=== PATIENT | female | born 1980 | race Caucasian/White ===

== ENCOUNTER 2024-11-25 19:50 | Emergency (ER) | payer MEDICARE, SELFPAY ==
--- OUTSIDE RECORDS SUMMARY | 2024-11-25 19:54 | XMS_ITS | Clinical Summary ---
Author Organization [facility] Address [address] [address] Care Team Providers Care Toe Former Stitchdowns Name Role Phone Unavailable Primary Care Provider Unavailabl e Source Comments [facility],non-owned Affiliates and Associated Physician Practices is amultiple site organization consisting of ambulatory clinics and hospital sitesin [place], [place], [place] and [place]. This disclosure is being madepursuant to the Care Everywhere program and may not contain all information available regarding this patient. Last updated 18.[facility] Allergies Active Allergy Reactions Criticality Noted Date Comments Codeine Swelling 04/20/2020 Medications * This document contains information received from the source organization and may not represent a complete record from that organization. * Be aware that medications may not be up to date on this document. Alwaysverify current medications with the patient. FLUoxetine (PROZAC) 40 MG capsuleIndicati ons:Major Depressive Disorder Take 1 capsule by mouth daily with breakfast 0 Active busPIRone (BUSPAR) 10 MG tabletIndicatio ns:Anxiety Take 1 tablet by mouth 2 times daily Reasons: Feeling Anxious 14 tablet 2 0 Active mirtazapine (REMERON) 15 MG tabletIndicatio ns:Major Depressive Disorder Take 1 tablet by mouth at bedtime Reasons: Major Depressive Disorder 7 tablet 2 0 Active Active Problems Problem Noted Date Diagnosed Date Drug overdose, intentional self-harm, initial en counter 04/20/2020 Bipolar affective disorder, depressed, severe Overdose of antipsychotic 04/20/2020 Immunizations Immunization Administration Dates Next Due INFLUENZA VACCINE, QUADR. (F LUZONE; FLULAVAL; FLUARIX; AFLURIA QUADRIVALENT; 6MO+), 0.5 ML (IIV4) 04/25/2020 Social History Tobacco Use Types Packs/Day Years Used Date Smoking Tobacco: Some Days Cigarettes Smokeless Tobacco: Never Tobacco Cessation:Ready to Q uit: No; Counseling Given: Yes Comments No Sex and Gender Information Value Date Recorded Sex Assigned at Not on file Legal Sex Female 4:17 PM CDT Gender Identity Not on file Sexual Orientation Not on file Last Filed Vital Signs Vital Sign Reading Time Taken Comments Blood Pressure 119/72 05/04/2020 6:04 AM CDT Pulse 78 05/04/2020 6:04 AM CDT Temperature 36.4 C (97.5 F) 05/04/2020 6:04 AM CDT Respiratory Rate 16 05/04/2020 6:04 AM CDT Oxygen Saturation 97% 05/04/2020 6:04 AM CDT Inhaled Oxygen Concentration 30% 04/22/2020 7 :26 PM CDT Weight 75.3 kg (166 lb) 05/01/2020 9:12 PM CDT Height 157.5 cm (5' 2 ) 05/01/2020 9:12 PM CDT Body Mass Index 30.36 05/01/2020 9:12 PM CDT Plan of Treatment Health Maintenance Due Date Last Done Comments LIPID TESTING 1982 MAMMOGRAM 1982 HIV SCREENING 1997 HEPATITIS C SCREENING 09/25/2000 DTAP/TDAP/TD VACCINES (1 - Tdap) 2001 HEPATITIS B VACCINE (1 of 3 - 19+ 3-dose series) 2001 PNEUMOCOCCAL VACCINE (1 of 2 - PCV) 2001 COVID-19 VACCINE ( - 2023-2 5 season) 2024 INFLUENZA VACCINE (Season Ended) 2025 04/25/20 20 ZOSTER VACCINE (1 of 2) 2032 HIB VACCINE Aged Out No longer eligi ble based on patient's age to complete this topic HPV VACCINE Aged Out No longer eligi ble based on patient's age to complete this topic MENINGOCOCCAL (Group B) VACC INE SHARED DECISION-MAKING Aged Out No longer eligibl e based on patient's age to complete this topic MENINGOCOCCAL GROUPS A/C/Y/W VACCINE Aged Out No longer eligible b ased on patient's age to complete this topic Insurance MEDICARE MEDICARE MEDICARE MEDICAID - [place] MEDICARE Advance Directives * Full Code (Latest Code Status on File) Date Activated Date Inactivated Comments 04/25/2020 3:33 PM 05/04/2020 11:57 AM * Full Code Date Activated Date Inactivated Comments 04/20/2020 9:57 AM 04/25/2020 3:23 PM
--- OUTSIDE RECORDS SUMMARY | 2024-11-25 19:54 | XMS_ITS | Clinical Summary ---
Author Organization [facility] Address [address] [place] [address] Care Team Providers Care Motor And Generator Assembler Name Role Phone No, Physician Primary Care Provider [phone] Allergies Active Allergy Reactions Criticality Noted Date Comments Codeine Swelling Medium 01/04/2023 Acetaminophen Swelling Medium 05/19/2024 Medications naproxen (NAPROSYN) 500 mg tablet Take 1 tablet (500 mg total) by mouth 2 (two) times a day with meals 30 tablet 05/19/2024 Active lidocaine (LIDODERM) 5 % Place 1 patch on the skin daily for 7 days Remove & discard patch within 12 hours or as directed by MD. 7 patch 05/19/2024 Active cyclobenzaprine (FLEXERIL) 10 mg tablet Take 1 tablet (10 mg total) by mouth 2 (two) times a day as needed for muscle spasms for up to 3 days 6 tablet 05/19/2024 Active Immunizations Immunization Administration Dates Next Due Tdap 05/19/2024 Social History Tobacco Use Types Packs/Day Years Used Date Smoking Tobacco: Never Assessed Personal Safety Answer Date Recorded Have you ever been in or are you currently in a harmful physical or emotional relationship or is someone making you feel afraid or unsafe? 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 Gender Identity Not on file Sexual Orientation Not on file Last Filed Vital Signs Vital Sign Reading Time Taken Comments Blood Pressure 116/68 05/19/2024 11:00 PM CDT Pulse 73 05/19/2024 11:00 PM CDT Temperature 36.4 C (97.5 F) 05/19/2024 8:06 PM CDT Respiratory Rate 18 05/19/2024 10:31 PM CDT Oxygen Saturation 100% 05/19/2024 11:00 PM CDT Inhaled Oxygen Concentration - - Weight 72.3 kg (159 lb 6.3 oz) 05/19/2024 8:06 P M CDT Height 157.5 cm (5' 2 ) 01/04/2023 5:11 PM CDT Body Mass Index 29.15 01/04/2023 5:11 PM CDT Plan of Treatment Health Maintenance Due Date Last Done Comments Breast Cancer Screening-Mammogram 1982 Cervical Cancer Screening 1982 Depression Screening 1982 Hepatitis C Screening 1982 Varicella Vaccines (1 of 2 - 13+ 2-dose series) 10/01/1995 Hepatitis B Screening 2000 Regular Well Visit/Exam 18-64 2000 Influenza Vaccine (Season Ended) 2025 04/25/2020, 06/24/2013 DTaP/Tdap/Td Vaccine (2 - Td or Tdap) 05/19/2034 05/19/2024 HPV Vaccines Aged Out No longer eligi ble based on patient's age to complete this topic Pneumococcal vaccine <65 Aged Out No longer eligible based on patient's age to complete this topic Insurance MEDICARE MEDICARE MEDICARE [employer] CHOICE MEDICARE PPO [id number] Care Teams Motor And Generator Assembler Relationship Specialty Start Date End Date No, Physician PCP - General 05/21/19
--- OUTSIDE RECORDS SUMMARY | 2024-11-25 19:54 | XMS_ITS | Referral Summary ---
Author Organization [facility] Address [address] [place] [address] Care Team Providers Care First Front Ventilator Name Role Phone No, Physician Primary Care Provider [phone] Allergies Active Allergy Reactions Criticality Noted Date [...] on file Legal Sex Female 10:56 AM SWITCH MAKER Gender Identity Not on file Sexual Orientation [...] 01/04/2023 5:11 PM CDT Plan of Treatment Not on file Insurance MEDICARE ([address] [id number] MEDICARE MEDICARE [employer] CHOICE MEDICARE PPO [facility] Care Teams First Front Ventilator Relationship Specialty Start Date End Date No, Physician PCP - General 05/21/19
[2024-11-25 19:55] VITALS: BP 111/94; PULSE 92; RESP 20; TEMP 37.1; O2SAT 97
--- OUTSIDE RECORDS SUMMARY | 2024-11-25 22:52 | XMS_ITS | Clinical Summary ---
Author Organization [facility] Address [address] [place] [id number] Care Team Providers Care Principal Data Architect Name Role Phone None, Provider Primary Care Provider Unavaila ble Allergies Active Allergy Reactions Criticality Noted Date Comments Acetaminophen Swelling 09/26/2024 Medications No known medications Encounters Date Type Department Care Team Description 09/26/2024 7:19 PM CDT - 09/26/2024 8:19 PM CDT Emergency [facility] [address] [place] [address] Chris Lopez MD Psychiatric Problem Discharge Disposition: Home or Self Care (Routine Discharge) 09/26/2024 Travel from Last 3 Months Social History Tobacco Use Types Packs/Day Years Used Date Smoking Tobacco: Never Assessed Comments Unknown Sex and Gender Information Value Date Recorded Sex Assigned at Female 09/26/2024 7:30 PM CDT Legal Sex Female 4:32 PM CDT Gender Identity Female 09/26/2024 7:30 PM CDT Sexual Orientation Not on file Last Filed Vital Signs Vital Sign Reading Time Taken Comments Blood Pressure 116/70 09/26/2024 8:11 PM CDT Pulse 63 09/26/2024 8:11 PM CDT Temperature 36.2 C (97.2 F) 09/26/2024 7:26 PM CDT Respiratory Rate 20 09/26/2024 8:11 PM CDT Oxygen Saturation 98% 09/26/2024 8:11 PM CDT Inhaled Oxygen Concentration - - Weight 68.9 kg (152 lb) 09/26/2024 7:26 PM CDT Height 157.5 cm (5' 2 ) 09/26/2024 7:26 PM CDT Body Mass Index 27.8 09/26/2024 7:26 PM CDT Plan of Treatment Health Maintenance Due Date Last Done Comments Cervical Cancer Screening Pa p Smear (Age 30 to 64) Every 3 Years 1982 Annual Physical 1985 Hepatitis C 2000 Hepatitis B Vaccines (1 of 3 - 19+ 3-dose series) 2001 Cervical Cancer Screening Pa p with HPV Testing (Age 30 to 64) Every 5 Years 2012 Cervical Cancer Screening with HPV 2012 Mammogram Screening 2022 COVID-19 Vaccine (1 - 2023-2 5 season) 2024 DTaP, Tdap and Td Vaccines ( 2 - Td or Tdap) 05/19/2034 05/19/2024 HPV Vaccines Aged Out No longer eligi ble based on patient's age to complete this topic Meningococcal B Vaccine Aged Out No l onger eligible based on patient's age to complete this topic Meningococcal Vaccine Aged Out No olaf starr eligible based on patient's age to complete this topic Pneumococcal Vaccine: Pediat rics (0 to 5 Years) and At-Risk Patients (6 to 49 Years) Aged Out No longer eligi ble based on patient's age to complete this topic RSV Immunizations Under 20 Months Aged Out No longer eligible based on patient's age to complete this topic Insurance Care Teams Principal Data Architect Relationship Specialty Start Date End Date None, Provider, MD PCP - General UNKNOWN PHYSICIAN SPECIALTY 09/26/24
--- OUTSIDE RECORDS SUMMARY | 2024-11-25 22:52 | XMS_ITS | Clinical Summary ---
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 Care Teams Condenser Tester Relationship Specialty Start Date End Date No, Physician PCP - General 05/21/19
--- OUTSIDE RECORDS SUMMARY | 2024-11-25 22:52 | XMS_ITS | Clinical Summary ---
Author Organization [facility] Address [address] [place] [address] Care Team Providers Care Nuclear Physicist Name Role Phone Unavailable Primary Care Provider Unavailabl e Source Comments [facility],non-owned Affiliates and Associated Physician Practices is amultiple site organization consisting of ambulatory clinics and hospital sitesin [place], [place], [place] and [place]. This disclosure is being madepursuant to the Care Everywhere program and may not contain all information available regarding this patient. Last updated 18.[facility] Allergies Active Allergy Reactions Criticality Noted Date [...]
--- OUTSIDE RECORDS SUMMARY | 2024-11-25 22:52 | XMS_ITS | Referral Summary ---
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
--- NOTE | 2024-11-25 23:21 | ED.GENADULT ---
HPI - General Adult General Chief complaint: Unspecified Stated complaint: lice, crabs, and bedbugs Time Seen by Provider: 11/25/24 22:11 Source: patient Mode of arrival: ambulatory Limitations: no limitations History of Present Illness HPI narrative: 44-year-old here with a complains of having head lice, bedbugs, body lice for past 2 months she thinks they are crawling all over her body and into her mouth. She states that she has seen several providers and they did not believe. She states that she lives with a person OS [address] head she thinks she has fleas all over the body Onset (ago): month(s) Associated symptoms: denies other symptoms Related Data Allergies Allergy/AdvReac Type Severity Reaction Status Date / Time codeine Allergy Mild Unknown Verified 11/25/24 19:52 acetaminophen Allergy Unknown GENERALIZED Verified 11/25/24 19:52 EDEMA Review of Systems Review of Systems: All systems reviewed & are unremarkable except as noted in HPI and below Constitutional: Constitutional: Reports no additional constitutional complaints Eyes: Eyes: Reports no additional eye complaints ENT: Reports system reviewed and no additional complaints, except as documented Cardiovascular: Cardiovascular: Reports no additional cardiovascular complaints Respiratory: Respiratory: Reports no additional respiratory complaints Gastrointestinal: Gastrointestinal: Reports no additional gastrointestinal complaints Musculoskeletal: Musculoskeletal: Reports no additional musculoskeletal complaints Exam Narrative: GENERAL: Well-appearing, well-nourished, and in no acute distress. HEAD: Normocephalic, atraumatic. EYES: PERRLA and EOMI. ENT: Nares clear, no rhinorrhea or epistaxis. Mucous membranes moist. NECK: Supple. CHEST: Clear to auscultation. No respiratory distress. HEART: Regular rate and rhythm. No murmur heard. Normal peripheral pulses. ABDOMEN: Soft, nontender, nondistended, normal active bowel sounds. EXTREMITIES: Normal range of motion. No edema. SKIN: Warm, dry, no rash. NEURO: No focal deficits. Alert and oriented x3. PSYCH: Normal mood and affect. Course Course Emergency Course: I did not see any lice or bugs on the body thoroughly examined the hair , i told her could be her imagination Vital Signs Vital signs: Vital Signs Temperature 37.1 C 11/25/24 19:55 Pulse Rate 92 11/25/24 19:55 Respiratory Rate 20 11/25/24 19:55 Blood Pressure 111/94 H 11/25/24 19:55 Pulse Oximetry 97 11/25/24 19:55 Oxygen Delivery Room Air 11/25/24 19:55 Temperature 37.1 C 11/25/24 19:55 Pulse Rate 92 11/25/24 19:55 Respiratory Rate 20 11/25/24 19:55 Blood Pressure 111/94 H 11/25/24 19:55 Pulse Oximetry 97 11/25/24 19:55 Oxygen Delivery Room Air 11/25/24 19:55 Medical Decision Making Vital Signs Vital Signs: Vital Signs Temperature 37.1 C 11/25/24 19:55 Pulse Rate 92 11/25/24 19:55 Respiratory Rate 20 11/25/24 19:55 Blood Pressure 111/94 H 11/25/24 19:55 Pulse Oximetry 97 11/25/24 19:55 Oxygen Delivery Room Air 11/25/24 19:55 Temperature 37.1 C 11/25/24 19:55 Pulse Rate 92 11/25/24 19:55 Respiratory Rate 20 11/25/24 19:55 Blood Pressure 111/94 H 11/25/24 19:55 Pulse Oximetry 97 11/25/24 19:55 Oxygen Delivery Room Air 11/25/24 19:55 Discharge Plan Discharge Clinical Impression: Psychogenic formication Patient Disposition: Home Condition: Stable Instructions: Antibiotic Form Additional Instructions: You do not have any head lice , follow with your doctor Patient Language: Turkish Follow-up/Referrals: Ralph Heath DO [Physician] - PHYSICIAN,COMMUNICATIONS ELECTRICIAN SUPERVISOR [Primary Care Provider] - Time of Disposition: 23:23
[2024-11-25 23:51] VITALS: BP 116/89; PULSE 81; RESP 15; O2SAT 98
== END 2024-11-25 23:52 | disposition home or self-care (01) ==
PROVIDERS: Emergency Provider Family Medicine
DX: F45.8 Other somatoform disorders (principal)
CPT/HCPCS: 99281